=== PATIENT | female | born 1995 | race Caucasian/White ===

== ENCOUNTER 2019-04-30 15:53 | Emergency (ER) | payer BC ==
--- NOTE | 2019-04-30 16:40 | EDM.PDOC ---
ED HPI GENERAL MEDICAL PROBLEM - General Chief Complaint: Neuro Symptoms/Deficits Stated Complaint: RAPID HEARTBEAT, LEFT ARM NUMB AND TINGLING Time Seen by Provider: 04/30/19 16:08 Source of Information: Reports: Patient History Limitations: Reports: No Limitations - History of Present Illness INITIAL COMMENTS - FREE TEXT/NARRATIVE: states she felt like she was having heart palpations this morning; went to urgent care; they told her her blood pressure and pulse were elevated but she was ok to leave; as she has a follow up appt with PCP on Friday So she was driving to [place] when she started to feel palpitations again and her left arm became numb and tingling; it has since resolved She states she has a hx of anxiety Uses cbd oil which helps but she has had more stress the last couple of days admits to using more caffeinated drinks lately as well No use of drugs and little use of etoh Onset: Today Severity: Moderate ED ROS GENERAL - Review of Systems Review Of Systems: See Below Constitutional: Reports: Other (left arm tingling) HEENT: Reports: No Symptoms Respiratory: Reports: No Symptoms Cardiovascular: Reports: Palpitations GI/Abdominal: Reports: No Symptoms Musculoskeletal: Reports: Other (left arm tingling) Neurological: Reports: Tingling Psychiatric: Reports: Anxiety ED EXAM, GENERAL - Physical Exam Exam: See Below Exam Limited By: No Limitations General Appearance: Alert, WD/WN, Anxious Eye Exam: Bilateral Eye: EOMI, PERRL Throat/Mouth: Normal Oropharynx, No Airway Compromise Head: Atraumatic, Normocephalic Neck: Normal Inspection, Supple, Non-Tender, Full Range of Motion Respiratory/Chest: Lungs Clear Cardiovascular: Other (regularly irregular) GI/Abdominal: Normal Bowel Sounds, Soft Extremities: Normal Inspection, Normal Range of Motion, Non-Tender, Normal Capillary Refill Neurological: Alert, Oriented, CN II-XII Intact, Normal Cognition, Normal Gait Psychiatric: Anxious Skin Exam: Warm, Dry Course - Vital Signs Last Recorded V/S: Last Vital Signs Temp 97.6 F 04/30/19 16:13 Pulse 94 04/30/19 16:13 Resp 18 04/30/19 16:13 BP 134/71 04/30/19 16:13 Pulse Ox 97 04/30/19 16:13 - Orders/Labs/Meds Orders: Active Orders 24 hr Category Date Time Status EKG Documentation Completion [RC] ASDIRECTED Care 04/30/19 16:35 Active EKG 12 Lead [EK] Routine Ther 04/30/19 16:34 Ordered Departure - Departure Time of Disposition: 17:10 Disposition: Home, Self-Care 01 Condition: Good Clinical Impression: Palpitations - Discharge Information *PRESCRIPTION DRUG MONITORING PROGRAM REVIEWED*: Not Applicable *COPY OF PRESCRIPTION DRUG MONITORING REPORT IN PATIENT CRISTINE: Not Applicable Instructions: Palpitations, [id number] Referrals: Shubham Corral DO [Primary Care Provider] - Forms: ED Department Discharge Additional Instructions: Stay hydrated Avoid caffeinated drinks Figure out a way to distract yourself when you start getting anxious Follow up with your doctor on Friday as already scheduled call with questions Return to ER if symptoms worsen. - Problem List & Annotations (1) Palpitations SNOMED Code(s): 81001231 Code(s): R00.2 - PALPITATIONS Status: Acute Priority: Low Current Visit : Yes - My Orders Last 24 Hours: My Active Orders 04/30/19 16:34 EKG 12 Lead [EK] Routine 04/30/19 16:35 EKG Documentation Completion [RC] ASDIRECTED - Assessment/Plan Last 24 Hours: My Active Orders 04/30/19 16:34 EKG 12 Lead [EK] Routine 04/30/19 16:35 EKG Documentation Completion [RC] ASDIRECTED
== END 2019-04-30 17:32 | disposition home or self-care (01) ==
LOC: JP.ED 15:53
DX: R00.2 Palpitations (principal)
CPT/HCPCS: 93005; 99284-25